=== PATIENT | female | born 2000 | race African-American/Black ===

== ENCOUNTER 2023-05-15 22:19 | Emergency (ER) | payer SELFPAY ==
[~2023-05-15] VITALS: Ht 167.6 cm; Wt 72.6 kg
[2023-05-15 22:55] VITALS: BP 127/97; PULSE 127; RESP 19; TEMP 100.2; O2SAT 97
[2023-05-15] MEDS ORDERED: ACETAMINOPHEN 325 MG TAB PO ONE (23:25)
[2023-05-15 23:45] LABS: APPEARANCE,URINE SL CLOUDY (CLEAR); BILIRUBIN,URINE 1+ (NEGATIVE); BLOOD, URINE NEGATIVE (NEGATIVE); COLOR,URINE YELLOW (YELLOW); LEUKOCYTE ESTERASE ,URINE NEGATIVE (NEGATIVE); NITRITE, URINE NEGATIVE (NEGATIVE); PROTEIN,URINE TRACE (NEGATIVE); UGLUCOSE NEGATIVE (NEGATIVE); UROBILINOGEN,URINE 0.2 EU/dL (0.2 - 1)
[2023-05-15 23:51] LABS: FLU A ANTIGEN negative (NEGATIVE); FLU B ANTIGEN NEGATIVE (NEGATIVE)
[2023-05-15 23:53] LABS: ICTOTEST POSITIVE (NEGATIVE)
[2023-05-16] MEDS: HYDROcodone/APAP 5/325 MG 1 TAB TAB PO ONE (00:15)
[2023-05-16] MEDS: KETOROLAC 30 MG/ML VIAL IM ONE (00:21)
[2023-05-16 01:19] VITALS: BP 115/58; PULSE 97; RESP 15; TEMP 98.1; O2SAT 95
[2023-05-16] MEDS ORDERED: ACET-8905 PO (01:31)
[2023-05-16] MEDS ORDERED: NAPR-54 PO (01:31)
[2023-05-16] MEDS ORDERED: AMOX1TAB8 PO (01:31)
== END 2023-05-16 01:50 | disposition home or self-care (01) ==
LOC: MED 22:19
DX: J02.9 Acute pharyngitis, unspecified (principal); Z20.822 Contact with and (suspected) exposure to COVID-19; Z79.899 Other long term (current) drug therapy
CPT/HCPCS: 81003; 81025; 87081; 87426; 87804; 96372; 99283; J1885

== ENCOUNTER 2023-05-22 22:00 | Emergency (ER) | payer SELFPAY ==
[~2023-05-22] VITALS: Ht 167.6 cm; Wt 72.6 kg
[~2023-05-22 22:00] MED LIST: ACET-8905 PO; AMOX1TAB8 PO; NAPR-54 PO
[2023-05-22 22:19] VITALS: BP 113/69; PULSE 69; RESP 20; TEMP 98.3; O2SAT 99
[2023-05-22 23:51] VITALS: O2SAT 98
[2023-05-23 00:18] VITALS: BP 117/72; PULSE 71; RESP 18; TEMP 98.4; O2SAT 99
[2023-05-23] MEDS ORDERED: PRED20TA5 PO (00:19)
[2023-05-23] MEDS ORDERED: IBUP-2213 PO (00:19)
[2023-05-23] MEDS: KETOROLAC 60 MG/2 ML VIAL IM ONE (00:22)
== END 2023-05-23 00:50 | disposition home or self-care (01) ==
LOC: MED 22:00
DX: J02.9 Acute pharyngitis, unspecified (principal); Z79.899 Other long term (current) drug therapy
CPT/HCPCS: 96372; 99283; J1885